=== PATIENT | female | born 1940 | race Caucasian/White ===

== ENCOUNTER → 2024-07-13 13:16 | Outpatient (REF) | payer OTHER, MEDICARE, SELFPAY | LOC: RCS 13:16 | PROVIDERS: ATTENDING PHYSICIAN Internal Medicine Cardiovascular Disease; FAMILY PHYSICIAN Hospitalist | DX: I35.0 Nonrheumatic aortic (valve) stenosis (principal); I34.0 Nonrheumatic mitral (valve) insufficiency; I48.0 Paroxysmal atrial fibrillation; R00.2 Palpitations | CPT/HCPCS: 93306 ==